=== PATIENT | male | born 1945 | race Caucasian/White ===

== ENCOUNTER 2020-01-04 19:59 | Inpatient (IN) ==
[2020-01-04] MEDS ORDERED: cefTRIAXone 1,000 MG in Water for inj. (sterile) 10 ML IVP ONE (20:30)
[2020-01-04] MEDS ORDERED: 0.9 % Sodium Chloride 1,000 ML IVC ONE (20:30)
[2020-01-04 20:56] LABS: Basophils % 0.1 %; Eosinophils % 0.4 %; Hematocrit 30.5 % (37.5-50.1); Hemoglobin 9.8 g/dL (12.9-16.9); Immature Granulocytes % 0.5 % (0-4); Lymphocytes # 0.3 K/mcL (0.6-4.6); Lymphocytes % 4.2 %; Mean Corpuscular HGB Conc 32.1 g/dL (31.6-35.5); Mean Corpuscular Hemoglobin 28.2 pg (28.0-33.3); Mean Corpuscular Volume 87.9 fL (83.0-100.0); Mean Platelet Volume 9.1 fL (9.4-12.4); Monocytes # 0.5 K/mcL (0.0-1.3); Monocytes % 6.4 %; Neutrophils # 6.5 K/mcL (1.6-8.9); Platelet Count 125 K/mcL (140-400); Red Blood Count 3.47 M/mcL (4.19-5.50); Red Cell Distribution Width 13.9 % (11.5-14.5); Segmented Neutrophils % 88.4 %; White Blood Count 7.3 K/mcL (4.3-11.1)
[2020-01-04 21:11] LABS: BUN/Creatinine Ratio 16 (6-26); Blood Urea Nitrogen 19 mg/dL (8-23); Calcium 8.3 mg/dL (8.6-10.3); Carbon Dioxide 22 mEq/L (23-29); Chloride 104 mEq/L (98-107); Glucose 196 mg/dL (70-105); Osmolality,Calculated 286 (280-300); Sodium 134 mEq/L (136-145); eGFR For African Americans > 60 (> 60); eGFR For Non-African Americans > 60 (> 60)
[2020-01-04 21:21] LABS: Bilirubin,Urine Negative (Negative); Blood,Urine Trace (Negative); Clarity,Urine Cloudy (Clear); Color,Urine Yellow (Yellow); Glucose,Urine (UA) 100 mg/dL (Normal); Ketones,Urine Negative (Negative); Leukocyte Esterase,Urine Moderate (Negative); Nitrite,Urine Negative (Negative); PH,Urine 7.5 pH Units (5.0-8.0); Protein,Urine 100 mg/dL (Neg-Trace); Specific Gravity,Urine 1.023 (1.010-1.025); Urobilinogen,Urine Normal (Normal)
[2020-01-04 21:23] LABS: Bacteria,Urine None Seen per hpf (None-Few); Hyaline Casts,Urine None Seen per lpf (None-Few); Squamous Epithelial Cell,Urine Few per lpf (None-Few); WBC,Urine 50-100 per hpf (0-3)
[2020-01-04 21:24] LABS: Alanine Aminotransferase 6 Units/L (7-52); Albumin 3.3 g/dL (3.5-5.7); Albumin/Globulin Ratio 1.2 (1.1-2.2); Alkaline Phosphatase 83 Units/L (34-104); Aspartate Amino Transferase 9 Units/L (13-39); Bilirubin,Direct 0.4 mg/dL (0.0-0.2); Bilirubin,Total 1.4 mg/dL (0.3-1.0); Globulin 2.8 g/dL (2.4-3.5); Lipase < 3 Units/L (11-82); Magnesium 1.6 mg/dL (1.6-2.6); Total Protein 6.1 g/dL (6.4-8.9); Troponin I < 0.03 ng/mL (< 0.04)
[2020-01-04 21:27] LABS: VBG HCO3 24 mEq/L (21-27); VBG PCO2 38 mmHg (41-51); VBG PH 7.41 pH Units (7.32-7.42); VBG PO2 151 mmHg (25-50)
[2020-01-04] MEDS ORDERED: 0.9 % Sodium Chloride 500 ML IVC ONE (23:56)
[2020-01-05] MEDS ORDERED: Naloxone 0.4 MG/ML INJ IVP PRN (00:32)
[2020-01-05] MEDS ORDERED: D5% in Water 1,000 ML IVC PRN (00:34)
[2020-01-05] MEDS ORDERED: Dextrose Gel 15 GM/37.5 ML TUBE PO PRN ×2 (00:34)
[2020-01-05] MEDS ORDERED: *HR* Dextrose 50 % in Water (Syg) 50 ML SYRINGE IVP PRN (00:34)
[2020-01-05 01:02] LABS: Lactate Dehydrogenase 125 Units/L (140-271)
[2020-01-05] MEDS ORDERED: 0.9 % Sodium Chloride 1,000 ML IVC SCH (01:30)
[2020-01-05 03:00] LABS: INR 1.5; Prothrombin Time 16.7 Seconds (9.4-12.1)
[2020-01-05 03:02] LABS: Activated Partial Thrombo Time 30.8 Seconds (26.0-36.0)
[2020-01-05 03:16] LABS: Alanine Aminotransferase 6 Units/L (7-52); Albumin 3.1 g/dL (3.5-5.7); Alkaline Phosphatase 75 Units/L (34-104); Aspartate Amino Transferase 10 Units/L (13-39); BUN/Creatinine Ratio 15 (6-26); Blood Urea Nitrogen 17 mg/dL (8-23); Calcium 7.9 mg/dL (8.6-10.3); Carbon Dioxide 23 mEq/L (23-29); Chloride 108 mEq/L (98-107); Glucose 123 mg/dL (70-105); Osmolality,Calculated 283 (280-300); Phosphorous 2.5 mg/dL (2.7-4.5); Sodium 135 mEq/L (136-145); Total Protein 6.1 g/dL (6.4-8.9); eGFR For African Americans > 60 (> 60); eGFR For Non-African Americans > 60 (> 60)
[2020-01-05 03:30] LABS: Thyroid Stimulating Hormone 1.529 mcIU/mL (0.340-5.600)
[2020-01-05 03:35] LABS: Basophils % 0.2 %; Eosinophils # 0.1 K/mcL (0.0-0.6); Eosinophils % 0.9 %; Hematocrit 30.5 % (37.5-50.1); Hemoglobin 9.4 g/dL (12.9-16.9); Immature Granulocytes % 0.5 % (0-4); Lymphocytes # 0.8 K/mcL (0.6-4.6); Lymphocytes % 12.4 %; Mean Corpuscular HGB Conc 30.8 g/dL (31.6-35.5); Mean Corpuscular Hemoglobin 27.6 pg (28.0-33.3); Mean Corpuscular Volume 89.4 fL (83.0-100.0); Mean Platelet Volume 9.4 fL (9.4-12.4); Monocytes # 0.5 K/mcL (0.0-1.3); Monocytes % 6.8 %; Neutrophils # 5.3 K/mcL (1.6-8.9); Platelet Count 126 K/mcL (140-400); Red Blood Count 3.41 M/mcL (4.19-5.50); Red Cell Distribution Width 13.9 % (11.5-14.5); Segmented Neutrophils % 79.2 %; White Blood Count 6.6 K/mcL (4.3-11.1)
[2020-01-05] MEDS: Insulin LISPRO 300 UNITS/3 ML VIAL SQ SCH ×4 (05:52→23:20)
[2020-01-05] MEDS ORDERED: *HR* Heparin 5,000 UNIT/ML VIAL SQ SCH (06:00)
[2020-01-05] MEDS ORDERED: cefTRIAXone 1,000 MG in Water for inj. (sterile) 10 ML IVPB SCH (09:00)
[2020-01-05] MEDS: Acetaminophen 325 MG TABLET PO PRN ×2 (11:52→18:04)
[2020-01-05] MEDS: Ondansetron 4 MG/2 ML VIAL IVP PRN ×2 (11:53→19:53)
[2020-01-05] MEDS: Ringers Solution, Lactated 1,000 ML IVC SCH (18:04)
[2020-01-05] MEDS: Cefepime HCl 1,000 MG in Water for inj. (sterile) 10 ML IVP SCH (23:23)
[2020-01-06 00:37] LABS: Basophils % 0.2 %; Eosinophils % 0.4 %; Hematocrit 29.5 % (37.5-50.1); Hemoglobin 9.3 g/dL (12.9-16.9); Immature Granulocytes % 1.1 % (0-4); Lymphocytes # 0.7 K/mcL (0.6-4.6); Mean Corpuscular HGB Conc 31.5 g/dL (31.6-35.5); Mean Corpuscular Hemoglobin 27.6 pg (28.0-33.3); Mean Corpuscular Volume 87.5 fL (83.0-100.0); Mean Platelet Volume 8.9 fL (9.4-12.4); Monocytes # 0.5 K/mcL (0.0-1.3); Monocytes % 8.3 %; Neutrophils # 4.2 K/mcL (1.6-8.9); Platelet Count 119 K/mcL (140-400); Red Blood Count 3.37 M/mcL (4.19-5.50); Red Cell Distribution Width 13.6 % (11.5-14.5); White Blood Count 5.4 K/mcL (4.3-11.1)
[2020-01-06 00:55] LABS: BUN/Creatinine Ratio 17 (6-26); Blood Urea Nitrogen 18 mg/dL (8-23); Carbon Dioxide 22 mEq/L (23-29); Chloride 105 mEq/L (98-107); Glucose 152 mg/dL (70-105); Osmolality,Calculated 283 (280-300); Potassium 3.5 mEq/L (3.5-5.1); Sodium 134 mEq/L (136-145); eGFR For African Americans > 60 (> 60); eGFR For Non-African Americans > 60 (> 60)
[2020-01-06] MEDS: Ringers Solution, Lactated 1,000 ML IVC SCH ×3 (02:13→18:25)
[2020-01-06] MEDS: Insulin LISPRO 300 UNITS/3 ML VIAL SQ SCH ×4 (05:33→23:57)
[2020-01-06] MEDS: Cefepime HCl 1,000 MG in Water for inj. (sterile) 10 ML IVP SCH ×2 (08:41→15:57)
[2020-01-06] MEDS: amLODIPine 5 MG TABLET PO SCH (08:42)
[2020-01-06] MEDS ORDERED: Ketoconazole Shampoo 120 ML BOTTLE TP PRN (11:19)
[2020-01-06] MEDS ORDERED: hydrALAZINE 25 MG TABLET PO PRN ×2 (11:19→12:02)
[2020-01-06] MEDS ORDERED: Ondansetron ODT 4 MG TAB.RAPDIS PO PRN (11:19)
[2020-01-06] MEDS ORDERED: Bisacodyl 10 MG RECTAL SUPPOSITORY RC PRN (11:19)
[2020-01-06] MEDS ORDERED: polyethylene glycoL 3350 17 GM POWD.PACK PO PRN (11:19)
[2020-01-06] MEDS: Lidocaine OINT 35.44 GM TUBE TP SCH ×2 (16:01→21:25)
[2020-01-06] MEDS ORDERED: Melatonin 3 MG TABLET PO SCH (21:00)
[2020-01-07] MEDS: Cefepime HCl 1,000 MG in Water for inj. (sterile) 10 ML IVP SCH ×2 (00:03→07:55)
[2020-01-07] MEDS: Ringers Solution, Lactated 1,000 ML IVC SCH ×2 (02:36→11:51)
[2020-01-07] MEDS: Insulin LISPRO 300 UNITS/3 ML VIAL SQ SCH ×2 (06:03→11:57)
[2020-01-07] MEDS: amLODIPine 5 MG TABLET PO SCH (07:57)
[2020-01-07] MEDS: Lidocaine OINT 35.44 GM TUBE TP SCH (07:59)
[2020-01-07] MEDS ORDERED: Finasteride 5 MG TABLET PO SCH (09:00)
[2020-01-07] MEDS ORDERED: Cholecalciferol (D-3) 1,000 UNIT (25MCG) TABLET PO SCH (09:00)
[2020-01-07] MEDS ORDERED: Insulin DETEMIR 100 UNIT/ML X5UNITS SQ SCH (09:00)
[2020-01-07] MEDS ORDERED: Sennosides/Docusate Sodium TABLET PO SCH (09:00)
[2020-01-07 11:16] VITALS: BP 168/81
== END 2020-01-07 14:17 | DRG 698 ==
LOC: EMEROOARM 19:59 → 2ANU 19:59 → SUATTDRO 01-05 00:13 → 2ANU 01-05 00:17
PROVIDERS: ADMIT Internal Medicine; ATTEND Student in an Organized Health Care Education/Training Program

== ENCOUNTER 2020-02-10 19:13 | Observation (INO) ==
[2020-02-10] MEDS ORDERED: Morphine Sulfate 2 MG/ML SYRINGE IVP ONE (19:24)
[2020-02-10 19:53] LABS: Basophils % 0.3 %; Eosinophils # 0.1 K/mcL (0.0-0.6); Eosinophils % 1.1 %; Hemoglobin 7.9 g/dL (12.9-16.9); Immature Granulocytes % 0.4 % (0-4); Lymphocytes # 0.7 K/mcL (0.6-4.6); Lymphocytes % 9.3 %; Mean Corpuscular HGB Conc 29.3 g/dL (31.6-35.5); Mean Corpuscular Hemoglobin 25.6 pg (28.0-33.3); Mean Corpuscular Volume 87.4 fL (83.0-100.0); Mean Platelet Volume 9.3 fL (9.4-12.4); Monocytes # 0.3 K/mcL (0.0-1.3); Monocytes % 4.9 %; Neutrophils # 5.8 K/mcL (1.6-8.9); Platelet Count 137 K/mcL (140-400); Red Blood Count 3.09 M/mcL (4.19-5.50); Red Cell Distribution Width 15.4 % (11.5-14.5)
[2020-02-10 19:58] LABS: INR 1.8; Prothrombin Time 20.3 Seconds (9.4-12.1)
[2020-02-10] MEDS ORDERED: Isovue-370 500 ML BOTTLE IVP ONE (19:59)
[2020-02-10 20:01] LABS: Activated Partial Thrombo Time 35.6 Seconds (26.0-36.0)
[2020-02-10 20:14] LABS: Alanine Aminotransferase 10 Units/L (7-52); Albumin 2.4 g/dL (3.5-5.7); Albumin/Globulin Ratio 0.8 (1.1-2.2); Alkaline Phosphatase 140 Units/L (34-104); Aspartate Amino Transferase 12 Units/L (13-39); BUN/Creatinine Ratio 22 (6-26); Bilirubin,Direct 0.2 mg/dL (0.0-0.2); Bilirubin,Indirect 0.3 mg/dL (0.0-1.0); Bilirubin,Total 0.5 mg/dL (0.3-1.0); Blood Urea Nitrogen 22 mg/dL (8-23); Calcium 7.9 mg/dL (8.6-10.3); Carbon Dioxide 24 mEq/L (23-29); Chloride 106 mEq/L (98-107); Glucose 158 mg/dL (70-105); Lipase 12 Units/L (11-82); Osmolality,Calculated 291 (280-300); Potassium 3.9 mEq/L (3.5-5.1); Sodium 137 mEq/L (136-145); Total Protein 5.4 g/dL (6.4-8.9); Troponin I < 0.03 ng/mL (< 0.04); eGFR For African Americans > 60 (> 60); eGFR For Non-African Americans > 60 (> 60)
[2020-02-10 20:22] LABS: Bacteria,Urine Few per hpf (None-Few); Bilirubin,Urine Negative (Negative); Blood,Urine Negative (Negative); Clarity,Urine Clear (Clear); Color,Urine Yellow (Yellow); Glucose,Urine (UA) 50 mg/dL (Normal); Ketones,Urine Negative (Negative); Leukocyte Esterase,Urine Negative (Negative); Mucus,Urine Few per lpf (None-Few); Nitrite,Urine Negative (Negative); Protein,Urine 100 mg/dL (Neg-Trace); RBC,Urine 0-3 per hpf (0-3); Specific Gravity,Urine 1.024 (1.010-1.025); Squamous Epithelial Cell,Urine Few per hpf (None-Few); Urobilinogen,Urine Normal (Normal)
[2020-02-10 21:28] LABS: C-Reactive Protein 135 mg/L (Less than 10)
[2020-02-11] MEDS ORDERED: Naloxone 0.4 MG/ML INJ IVP PRN (02:53)
[2020-02-11] MEDS ORDERED: Dextrose Gel 15 GM/37.5 ML TUBE PO PRN ×2 (02:53)
[2020-02-11] MEDS ORDERED: Ketorolac 15 MG/ML VIAL IVP PRN (02:53)
[2020-02-11] MEDS ORDERED: *HR* Dextrose 50 % in Water (Vial) 50 ML VIAL IVP PRN (02:53)
[2020-02-11] MEDS ORDERED: D5% in Water 1,000 ML IVC PRN (02:53)
[2020-02-11] MEDS ORDERED: Gadolinium Contrast Agent (WT Based) IV PRN (03:11)
[2020-02-11 03:29] LABS: INR 1.8; Prothrombin Time 20.1 Seconds (9.4-12.1)
[2020-02-11 05:06] LABS: % Iron Saturation 7 % (20-55); Iron 15 mcg/dL (65-175); Transferrin 146 mg/dL (203-362)
[2020-02-11 05:24] LABS: Ferritin 247 ng/mL (20-250)
[2020-02-11] MEDS: Insulin LISPRO 300 UNITS/3 ML VIAL SQ SCH ×2 (07:39→11:52)
[2020-02-11] MEDS ORDERED: Iron Sucrose Complex 200 MG in 0.9 % Sodium Chloride 100 ML IVPB SCH (12:00)
[2020-02-11] MEDS ORDERED: *HR* OxyCODONE/APAP 5/325 TABLET PO PRN (14:46)
[2020-02-11] MEDS ORDERED: Ondansetron ODT 4 MG TAB.RAPDIS PO PRN (14:46)
[2020-02-11] MEDS ORDERED: Acetaminophen 325 MG TABLET PO PRN (14:46)
[2020-02-11] MEDS ORDERED: MICONAZOLE NITRATE APPL TP PRN (14:46)
[2020-02-11] MEDS ORDERED: MOM Conc 10 ML UD.LIQ PO PRN (14:46)
[2020-02-11] MEDS ORDERED: Ipratropium/Albuterol Neb 3 ML IH PRN (14:46)
[2020-02-11] MEDS ORDERED: GuaiFENesin Liq 200 MG/10 ML UDC PO SCH (15:00)
[2020-02-11] MEDS ORDERED: Simethicone 80 MG TAB.CHEW PO SCH (15:00)
[2020-02-11] MEDS ORDERED: hydrALAZINE 25 MG TABLET PO SCH (15:00)
[2020-02-11] MEDS ORDERED: Simethicone 80 MG TAB.CHEW PO PRN (15:15)
[2020-02-11] MEDS ORDERED: Melatonin 3 MG TABLET PO SCH (21:00)
[2020-02-11] MEDS ORDERED: Docusate Oral Soln 100 MG/10 ML UDC PO SCH (21:00)
[2020-02-12] MEDS: Insulin LISPRO 300 UNITS/3 ML VIAL SQ SCH ×4 (00:01→17:21)
[2020-02-12 07:46] LABS: Hematocrit 25.5 % (37.5-50.1); Hemoglobin 7.4 g/dL (12.9-16.9); Mean Corpuscular Hemoglobin 25.5 pg (28.0-33.3); Mean Corpuscular Volume 87.9 fL (83.0-100.0); Platelet Count 129 K/mcL (140-400); Red Cell Distribution Width 15.3 % (11.5-14.5)
[2020-02-12 07:47] LABS: Basophils % 0.3 %; Eosinophils # 0.1 K/mcL (0.0-0.6); Eosinophils % 2.3 %; Immature Granulocytes % 0.3 % (0-4); Lymphocytes # 0.8 K/mcL (0.6-4.6); Lymphocytes % 13.9 %; Mean Platelet Volume 9.8 fL (9.4-12.4); Monocytes # 0.3 K/mcL (0.0-1.3); Monocytes % 4.1 %; Neutrophils # 4.8 K/mcL (1.6-8.9); Segmented Neutrophils % 79.1 %
[2020-02-12] MEDS ORDERED: Fluconazole 400 MG/200 ML 400 MG/200 ML BAG IVPB SCH (08:15)
[2020-02-12 08:33] LABS: Source of Body Fluid Thoracentesis
[2020-02-12] MEDS ORDERED: Vancomycin 1,250 MG/262.5 ML IV.SOLN IVPB ONE (08:51)
[2020-02-12] MEDS ORDERED: Finasteride 5 MG TABLET PO SCH (09:00)
[2020-02-12] MEDS ORDERED: Cholecalciferol (D-3) 1,000 UNIT (25MCG) TABLET PO SCH (09:00)
[2020-02-12] MEDS: MetroNIDAZOLE 500 MG/100 ML 500 MG/100 ML BAG IVPB SCH ×2 (11:11→16:34)
[2020-02-12] MEDS: Cefepime HCl 2,000 MG in 0.9 % Sodium Chloride Mini Bag 100 ML IVPB SCH ×2 (12:59→16:49)
[2020-02-12 14:23] VITALS: BP 122/55
[2020-02-12 15:24] LABS: Appearance of Body Fluid Cloudy (Clear); Volume of Body Fluid 70 mL
[2020-02-12] MEDS ORDERED: Fluconazole 400 MG/200 ML 400 MG/200 ML BAG IVPB ONE (15:30)
[2020-02-12] MEDS ORDERED: Aminoglycoside Consult 1 EACH MC ONE (19:44)
[2020-02-12] MEDS ORDERED: Vancomycin 1,250 MG/262.5 ML IV.SOLN IVPB SCH (21:00)
[2020-02-13] MEDS ORDERED: CloNIDine Patch 0.2 MG PATCH (WEEKLY) TD SCH (09:00)
[2020-02-13] MEDS ORDERED: Fluconazole 400 MG/200 ML 400 MG/200 ML BAG IVPB SCH (09:00)
== END 2020-02-12 19:45 | disposition short-term general hospital (02) ==
LOC: EMEROOARM 19:13 → 3ANU 19:13 → SUATTDRO 02-11 00:11 → 3ANU 02-11 00:57
PROVIDERS: ADMIT Internal Medicine; ATTEND Student in an Organized Health Care Education/Training Program
PROC: IRDRAIN (2020-02-11 12:00)

== ENCOUNTER 2020-03-24 17:47 | Inpatient (IN) ==
[2020-03-24] MEDS: MetroNIDAZOLE 500 MG/100 ML 500 MG/100 ML BAG IVPB SCH (21:31)
[2020-03-24] MEDS: Cefepime HCl 2,000 MG in Water for inj. (sterile) 20 ML IVP SCH (21:32)
[2020-03-24] MEDS ORDERED: Acetaminophen 325 MG TABLET PO ONE (21:38)
[2020-03-24] MEDS ORDERED: Melatonin 3 MG TABLET PO ONE (21:39)
[2020-03-25] MEDS ORDERED: MetroNIDAZOLE 500 MG/100 ML 500 MG/100 ML BAG IVPB SCH
[2020-03-25] MEDS ORDERED: Naloxone 0.4 MG/ML INJ IVP PRN (01:17)
[2020-03-25] MEDS: Cefepime HCl 2,000 MG in Water for inj. (sterile) 20 ML IVP SCH ×2 (01:18→09:42)
[2020-03-25] MEDS: MetroNIDAZOLE 500 MG/100 ML 500 MG/100 ML BAG IVPB SCH ×2 (01:23→09:39)
[2020-03-25] MEDS ORDERED: Ipratropium/Albuterol Neb 3 ML IH PRN (02:01)
[2020-03-25 02:30] LABS: Hematocrit 27.2 % (37.5-50.1); Hemoglobin 8.5 g/dL (12.9-16.9); Mean Corpuscular HGB Conc 31.3 g/dL (31.6-35.5); Mean Corpuscular Hemoglobin 26.6 pg (28.0-33.3); Mean Platelet Volume 9.1 fL (9.4-12.4)
[2020-03-25 02:32] LABS: Basophils % 1.5 %; Eosinophils # 0.1 K/mcL (0.0-0.6); Eosinophils % 6.8 %; Lymphocytes # 0.6 K/mcL (0.6-4.6); Lymphocytes % 46.6 %; Mean Corpuscular Volume 85.3 fL (83.0-100.0); Monocytes # 0.2 K/mcL (0.0-1.3); Monocytes % 16.5 %; Neutrophils # 0.4 K/mcL (1.6-8.9); Platelet Count 106 K/mcL (140-400); Red Blood Count 3.19 M/mcL (4.19-5.50); Red Cell Distribution Width 17.2 % (11.5-14.5); Segmented Neutrophils % 28.6 %; White Blood Count 1.3 K/mcL (4.3-11.1)
[2020-03-25 02:40] LABS: INR 1.3; Prothrombin Time 14.6 Seconds (9.4-12.1)
[2020-03-25 04:02] LABS: Alanine Aminotransferase 13 Units/L (7-52); Albumin/Globulin Ratio 1.1 (1.1-2.2); Alkaline Phosphatase 106 Units/L (34-104); Aspartate Amino Transferase 14 Units/L (13-39); BUN/Creatinine Ratio 29 (6-26); Bilirubin,Total 0.6 mg/dL (0.3-1.0); Blood Urea Nitrogen 31 mg/dL (8-23); Calcium 8.5 mg/dL (8.6-10.3); Carbon Dioxide 19 mEq/L (23-29); Chloride 104 mEq/L (98-107); Globulin 2.7 g/dL (2.4-3.5); Glucose 131 mg/dL (70-105); Magnesium 1.6 mg/dL (1.6-2.6); Osmolality,Calculated 286 (280-300); Phosphorous 4.2 mg/dL (2.7-4.5); Potassium 3.9 mEq/L (3.5-5.1); Sodium 134 mEq/L (136-145); Total Protein 5.7 g/dL (6.4-8.9); eGFR For African Americans > 60 (> 60); eGFR For Non-African Americans > 60 (> 60)
[2020-03-25] MEDS ORDERED: *HR* Promethazine 25 MG/ML VIAL IVP PRN (04:13)
[2020-03-25] MEDS ORDERED: 0.9 % Sodium Chloride 1,000 ML IVC SCH (04:15)
[2020-03-25] MEDS ORDERED: Dextrose Gel 15 GM/37.5 ML TUBE PO PRN ×2 (04:59)
[2020-03-25] MEDS ORDERED: *HR* Dextrose 50 % in Water (Vial) 50 ML VIAL IVP PRN (04:59)
[2020-03-25] MEDS ORDERED: D5% in Water 1,000 ML IVC PRN (04:59)
[2020-03-25] MEDS: Insulin LISPRO 300 UNITS/3 ML VIAL SQ SCH ×2 (08:52→13:36)
[2020-03-25] MEDS ORDERED: *HR* Enoxaparin 40 MG/0.4 ML SYRINGE SQ SCH (09:00)
[2020-03-25] MEDS ORDERED: amLODIPine 5 MG TABLET PO SCH (09:00)
[2020-03-25] MEDS ORDERED: CloNIDine Patch 0.2 MG PATCH (WEEKLY) TD SCH (09:00)
[2020-03-25] MEDS ORDERED: Acetaminophen 325 MG TABLET PO SCH (09:00)
[2020-03-25] MEDS ORDERED: Sennosides 8.6 MG TABLET PO SCH (09:00)
[2020-03-25] MEDS ORDERED: Cholecalciferol (D-3) 1,000 UNIT (25MCG) TABLET PO SCH (09:00)
[2020-03-25] MEDS ORDERED: Thiamine (B-1) 100 MG TABLET PO SCH (09:00)
[2020-03-25] MEDS ORDERED: Finasteride 5 MG TABLET PO SCH (09:00)
[2020-03-25] MEDS ORDERED: polyethylene glycoL 3350 17 GM POWD.PACK PO SCH (09:00)
[2020-03-25 10:29] VITALS: BP 146/78
[2020-03-25] MEDS ORDERED: Cefepime HCl 2,000 MG in Water for inj. (sterile) 20 ML IVP SCH ×2 (18:00)
[2020-03-25] MEDS ORDERED: Insulin LISPRO 300 UNITS/3 ML VIAL SQ SCH (21:00)
[2020-03-25] MEDS ORDERED: Melatonin 3 MG TABLET PO SCH (21:00)
== END 2020-03-25 17:15 | disposition short-term general hospital (02) | DRG 95 ==
LOC: EMEROOARM 17:47 → 3NENU 17:47
PROVIDERS: ADMIT Student in an Organized Health Care Education/Training Program; ATTEND Student in an Organized Health Care Education/Training Program